=== PATIENT | male | born 1960 | race Caucasian/White ===

== ENCOUNTER 2016-11-27 09:22 | Emergency (ER) | payer SELFPAY ==
[~2016-11-27] VITALS: Ht 180.3 cm; Wt 59.0 kg
[2016-11-27 09:24] VITALS: BP 119/67; PULSE 75; RESP 17; TEMP 98.7; O2SAT 98
[2016-11-27] MEDS ORDERED: BACT800T5 PO (09:37)
[2016-11-27] MEDS ORDERED: diphenhydrAMINE HCL 50 MG/ML VIAL IV PUSH ONE (10:00)
[2016-11-27] MEDS ORDERED: SODIUM CHLORIDE 0.9% FLUSH 10 ML FLUSH IV FLUSH PRN (10:00)
[2016-11-27 10:14] LABS: AUTOMATED NEUTROPHIL # 3.4 TH/MM3 (1.8-7.7); BASOPHIL % 0.4 % (0.0-2.0); EOSINOPHIL # 0.2 TH/MM3 (0-0.4); EOSINOPHIL % 4.7 % (0.0-4.0); HEMATOCRIT 40.4 % (39.0-51.0); HEMO FLAGS DIFF FINAL; LYMPHOCYTE # 0.7 TH/MM3 (1.0-4.8); MEAN CELL VOLUME 96.9 FL (80.0-100.0); MEAN CORPUSCULAR HEMOGLOBIN 32.7 PG (27.0-34.0); MEAN CORPUSCULAR HGB CONC 33.8 % (32.0-36.0); MONO % 10.1 % (0.0-8.0); NEUT % 69.8 % (16.0-70.0); PLATELET COUNT 292 TH/MM3 (150-450); RED BLOOD COUNT 4.17 MIL/MM3 (4.50-5.90); RED CELL DISTRIBUTION WIDTH 11.9 % (11.6-17.2); WHITE BLOOD COUNT 4.8 TH/MM3 (4.0-11.0)
[2016-11-27 10:23] LABS: POTASSIUM 4.1 MEQ/L (3.5-5.1)
[2016-11-27 10:26] LABS: BICARBONATE 26.6 MEQ/L (21.0-32.0)
[2016-11-27] MEDS ORDERED: IOHEXOL 350 MG/ML 10 ML VIAL (for RAD DIAG) IV ONE (10:30)
--- NOTE | 2016-11-27 10:31 | PD ---
HPI . Neck swelling Chief Complaint: ENT Complaint Time Seen by Provider: 09:45 Travel History International Travel<30 days: No Contact w/Intl Traveler<30days: No Traveled to known affect area: No History of Present Illness HPI Patient presents with swelling on the right side of his neck just below his right ear. He reports onset on about 11/18. He states that it started as a very small area of swelling but it quickly enlarged. He states that he was seen at urgent care and was given a prescription for Bactrim. He states that the swelling seemed to have improved initially with the Bactrim. However, the swelling is no longer improving and has persisted. He was instructed to be seen in an emergency department if not better in 2 days. Patient reports very little pain. He denies any ear pain. He has not been running any fever. He has no exacerbating or relieving factors. In addition, the patient has now developed a diffuse rash. He states that it is not pruritic. It is associated with some tingling in his fingers. [facility] Past Medical History Medical History: Denies Significant Hx ?: Not Past Surgical History Surgical History: No Previous Surgery Social History Alcohol Use: Yes Tobacco Use: Yes (1 PPD) Substance Use: No Allergies-Medications (Allergen,Severity, Reaction): Coded Allergies: No Known Allergies (Unverified , 11/27/16) Reported Meds & Prescriptions Reported Meds & Active Scripts Active Reported Bactrim DS (Sulfamethoxazole-Trimethoprim) 800-160 Mg Tab 1 Tab PO BID Review of Systems Except as stated in HPI: all other systems reviewed are Neg General / Constitutional: No: Fever, Chills HENT: Positive: Masses, No: Earache Physical Exam Narrative GENERAL: Awake and alert and in no acute distress. SKIN: Warm and dry. HEAD: Atraumatic. Normocephalic. EYES: Pupils equal and round. ENT: Right TM is normal. NECK: Trachea midline. He has a visible swelling at the angle of the jaw on the right. This is an apparent lymph node which is about a centimeter in diameter. CARDIOVASCULAR: Regular rate and rhythm. RESPIRATORY: No accessory muscle use. MUSCULOSKELETAL: No obvious deformities. No edema. NEUROLOGICAL: Awake and alert. No obvious cranial nerve deficits. Motor grossly within normal limits. Normal speech. PSYCHIATRIC: Appropriate mood and affect; insight and judgment normal. Data Data Last Documented VS Vital Signs Date Time Temp Pulse Resp B/P Pulse Ox O2 Delivery O2 Flow Rate FiO2 11/27/16 09:24 98.7 75 17 119/[address] Soft Tiss Neck W Iv Cont (11/27/16 09:53) Basic Metabolic Panel (Bmp) (11/27/16 09:53) Complete Blood Count With Diff (11/27/16 09:53) Iv Access Insert/Monitor (11/27/16 09:53) Sodium Chloride 0.9% Flush (Ns Flush) (11/27/16 10:00) Diphenhydramine Inj (Benadryl Inj) (11/27/16 10:00) Iohexol 350 Inj (Omnipaque 350 Inj) (11/27/16 10:30) Labs Laboratory Tests Test 11/27/16 10:05 White Blood Count 4.8 TH/MM3 Red Blood Count 4.17 MIL/MM3 Hemoglobin 13.7 GM/DL Hematocrit 40.4 % Mean Corpuscular Volume 96.9 FL Mean Corpuscular Hemoglobin 32.7 PG Mean Corpuscular Hemoglobin 33.8 % Concent Red Cell Distribution Width 11.9 % Platelet Count 292 TH/MM3 Mean Platelet Volume 7.0 FL Neutrophils (%) (Auto) 69.8 % Lymphocytes (%) (Auto) 15.0 % Monocytes (%) (Auto) 10.1 % Eosinophils (%) (Auto) 4.7 % Basophils (%) (Auto) 0.4 % Neutrophils # (Auto) 3.4 TH/MM3 Lymphocytes # (Auto) 0.7 TH/MM3 Monocytes # (Auto) 0.5 TH/MM3 Eosinophils # (Auto) 0.2 TH/MM3 Basophils # (Auto) 0.0 TH/MM3 CBC Comment DIFF FINAL Differential Comment Sodium Level 136 MEQ/L Potassium Level 4.1 MEQ/L Chloride Level 103 MEQ/L Carbon Dioxide Level 26.6 MEQ/L Anion Gap 6 MEQ/L Blood Urea Nitrogen 9 MG/DL Creatinine 1.00 MG/DL Estimat Glomerular Filtration 78 ML/MIN Rate Random Glucose 98 MG/DL Calcium Level 9.0 MG/DL MDM Medical Decision Making Medical Screen Exam Complete: Yes Emergency Medical Condition: Yes Differential Diagnosis Differential diagnosis includes but is not limited to reactive lymphadenopathy, lymphoma, metastatic disease Narrative Course Patient presents with swelling just below the right ear at the angle of the jaw. I have ordered a CT to further evaluate the swelling. CBC & BMP Diagram 11/27/16 10:[address] 11/27/16 0953 Signed Impressions: Service Date/Time: Sunday, November 27, 2016 10:09 - CONCLUSION: 1. Right carotid gland is larger than the left where and contains 2 cystic areas measuring up to 10 mm. This is of uncertain etiology. No abscess is visualized. 2. There are mildly enlarged right neck lymph nodes which may be reactive. 3. There is a mass in the right vallecula measuring approximately 11 x 7 mm. Suggest direct visualization for further evaluation. 4. Severe bullous emphysema at the lung apices. Piero Batista MD Diagnosis Primary Impression: Mass of right side of neck Referrals: Jann Corbin MD Patient Instructions: General Instructions, Soft Tissue Mass (ED) Additional Instructions: Stop Bactrim. Benadryl, 2 every 4 hours until rash gone (will take a few days). It is imperative that you follow up with ENT for further evaluation of this mass. Disposition: 01 DISCHARGE HOME Condition: Stable Tresa Espinoza MD November 27, 2016 10:31
--- NOTE | 2016-11-27 10:55 | RADHPO ---
EXAM DATE/TIME: 11/27/2016 10:09 [facility] COMPARISON: No previous studies available for comparison. INDICATIONS : Swelling and rash behind right ear, treated with antibiotics without relief. IV CONTRAST: 38 cc Omnipaque 350 (iohexol) IV RADIATION DOSE: 12.60 CTDIvol (mGy) MEDICAL HISTORY : None SURGICAL HISTORY : None ENCOUNTER: Initial ACUITY: 2 weeks PAIN SCALE: 7/10 LOCATION: Right neck behind the ear. TECHNIQUE: Volumetric scanning of the neck was performed. Using automated exposure control and adjustment of th e mA and/or kV according to patient size, radiation dose was kept as low as reasonably achievable to obtain optimal diagnostic quality images. FINDINGS: Right parotid gland is larger than the left ankle contains a 2 low density areas measuring 9 mm and 1 0 mm. And of fluid density centrally. No abscess is clearly visualized. There are multiple mildly enl arged right neck lymph nodes measuring up to 14 x 10 mm. Submandibular glands are symmetric. There is a mass in the right vallecula measuring approximately 11 x 7 mm. It abuts the epiglottis. Thyroid gl and is within normal limits. There are is severe bullous emphysema at the lung apices. There is a con genital variant in the mid to inferior cervical spine. CONCLUSION: 1. Right carotid gland is larger than the left where and contains 2 cystic areas measuring up to 10 m m. This is of uncertain etiology. No abscess is visualized. 2. There are mildly enlarged right neck lymph nodes which may be reactive. 3. There is a mass in the right vallecula measuring approximately 11 x 7 mm. Suggest direct visualiza tion for further evaluation. 4. Severe bullous emphysema at the lung apices. Piero Batista MD on November 27, 2016 at 10:30 Board Certified Radiologist. This report was verified electronically.
[2016-11-27] MEDS ORDERED: BUPIVACAINE/EPINEPHRINE 0.25% PF 30 ML VIAL ONE (12:54)
== END 2016-11-27 11:28 | disposition home or self-care (01) ==
LOC: PHED 09:22
DX: R22.1 Localized swelling, mass and lump, neck (principal); F17.210 Nicotine dependence, cigarettes, uncomplicated; J43.9 Emphysema, unspecified
CPT/HCPCS: 70491; 80048; 85025; 99285; Q9967